=== PATIENT | male | born 1965 | race Caucasian/White ===

== ENCOUNTER 2018-06-10 18:24 | Inpatient (IN) | payer MEDICAID ==
[~2018-06-10] VITALS: Ht 170.2 cm; Wt 97.5 kg
[~2018-06-10 18:24] MED LIST: LOSA-49 PO
[2018-06-10] MEDS ORDERED: SODIUM CHLORIDE 0.9% 1,000 ML IV ONE (19:00)
[2018-06-10 19:34] LABS: Basophils # (auto) 0.1 uL; Basophils % (auto) 1.2 % (0.0-2.0); Eosinophils # (auto) 0.1 uL; Eosinophils % (auto) 0.7 % (0.0-7.0); Hematocrit 48.4 % (41.0-53.0); Hemoglobin 17.1 g/dL (13.5-17.5); Lymphocytes # (auto) 2.7 uL; Lymphocytes % (auto) 25.7 % (10.0-50.0); Mean Corpuscular Hemoglobin 32.4 pg (28.0-32.0); Mean Corpuscular Hgb Conc. 35.4 g/dL (32.0-36.0); Mean Corpuscular Volume 91.5 fL (80.0-100.0); Monocytes # (auto) 0.6 uL; Monocytes % (auto) 6.2 % (0.0-12.0); Neutrophils # (auto) 6.8 uL; Neutrophils % (auto) 66.2 % (37.0-80.0); Nucleated Red Blood Cells % 0.2 %; Platelet Count (auto) 230 10^3/uL (140-450); Red Blood Cells 5.29 10^6/uL (4.5-5.90); Red Cell Distribution Width 13.3 % (11.8-14.3); White Blood Cell 10.3 10^3/uL (4.4-10.8)
[2018-06-10 19:44] LABS: Alanine Aminotransferase 52 U/L (16-61); Albumin 4.1 g/dL (3.4-5.0); Anion Gap 8 (5-15); Aspartate Aminotransferase 30 U/L (15-37); BUN/Creatinine Ratio 11.6; Blood Urea Nitrogen 10 mg/dL (7-18); Calcium 8.2 mg/dL (8.5-10.1); Carbon Dioxide 24 mmol/L (21-32); Chloride 108 mmol/L (98-107); GFR African American 121 mL/min; GFR Non-African American 100 mL/min; Glucose 127 mg/dL (74-106); Potassium 3.3 mmol/L (3.5-5.1); Sodium 140 mmol/L (136-145)
[2018-06-10 19:48] LABS: Alkaline Phosphatase 99 U/L (45-117); Bilirubin, Total 0.6 mg/dL (0.2-1.0); Total Protein 8.1 g/dL (6.4-8.2)
[2018-06-10 20:04] LABS: Urine Bacteria NONE SEEN /hpf (None Seen); Urine Blood Negative /uL (Negative); Urine Specific Gravity 1.004 (1.001-1.035); Urine WBC <1 /hpf (0 - 3)
[2018-06-10] MEDS ORDERED: TEMAZEPAM 15 MG CAP PO PRN (20:45)
[2018-06-10] MEDS ORDERED: ONDANSETRON HCL 4 MG/2 ML VIAL IV PRN (20:45)
[2018-06-10] MEDS ORDERED: DEXTROSE (50%) 50ML SYRG IV PRN (20:45)
[2018-06-10] MEDS: cloNIDine HCL 0.1 MG TAB PO PRN (21:39)
[2018-06-10] MEDS: HYDROcodone-ACET 5/325MG TAB PO PRN (21:39)
[2018-06-10] MEDS ORDERED: POTASSIUM CHL 20 Meq TABLET PO ONE (21:45)
[2018-06-10] MEDS: FAMOTIDINE 20 MG TAB PO SCH (21:52)
[2018-06-10] MEDS ORDERED: ATORVASTATIN 20 MG TAB PO SCH (22:00)
[2018-06-10] MEDS ORDERED: hydrALAZINE HCL 20 MG/ML VL IV ONE (22:45)
[2018-06-10 23:47] VITALS: BP 145/109
[2018-06-11] VITALS (8 sets, daily range): BP systolic 139–170; BP diastolic 84–109
--- NOTE | 2018-06-11 | NUR ---
OPENING NOTE RECEIVED REPORT FROM MY ARREGUIN. ASSUMING ROLE OF CARE OF PATIENT AT THIS TIME. PATIENT SHOWING NO SIGN OF DISTRESS, SHORTNESS OF BREATH, BUT PATIENT STATES PAIN IS 7/10. PATIENT WILL BE MEDICATED PER PAIN PROTOCOL. PATIENT EDUCATED ON PLAN OF CARE FOR THE NIGHT. PATIENT VERBALIZED UNDERSTANDING. BED LOWERED, CALL LIGHT WITHIN REACH, AND PATIENT WILL BE ROUNDED ON EVERY HOUR AND NEEDED. Addendum: 06/11/18 at 0615 by AMITA MCLAIN RN DID NOT RECEIVE REPORT FROM YM ARREGUIN. RECEIVED PATIENT FROM ER.
[2018-06-11] MEDS: ACCU-CHEK COMFORT CURVE STRIP VI SCH ×4 (00:17→18:00)
[2018-06-11] MEDS: ACETAMINOPHEN 325 MG TAB PO PRN (00:22)
--- NOTE | 2018-06-11 01:53 | NUR ---
HOSPITALIST TO BE PAGED PATIENT HAS SLEEP APNEA AND USES CPAP AT HOME. PATIENT UNAWARE OF SETTINGS. REQUESTING CPAP TRIAL. WILL AWAIT ORDERS.
[2018-06-11] MEDS: HYDROcodone-ACET 5/325MG TAB PO PRN (02:33)
--- NOTE | 2018-06-11 03:30 | NUR ---
RT NOTE: PT SEEN BY RT @ THIS TIME FOR CPAP INITIATION. PT PLACED ON HOSPITAL HOME CPAP UNIT ON 5 CMH2O. PT IMMEDIATELY REMOVED MASK AND STATED IT WAS DIFFERENT THAN HIS HOME UNIT AND HE DID NOT WANT TO WEAR IT. CPAP LEFT @ BEDSIDE IN CASE PT CHANGES HIS MIND. NO SOB OR DISTRESS NOTED. SPO2 98% ON ROOM AIR, HR 72, CLEAR BS. RN AWARE OF REFUSAL.
--- NOTE | 2018-06-11 03:31 | NUR ---
RT AT BEDSIDE. PATIENT STATES THAT THE HOSPITAL CPAP DEVICE IS DIFFERENT FROM WHAT PATIENT IS ACCUSTOMED TO AND DOES NOT LIKE IT. CPAP LEFT AT BEDSIDE IN CASE PATIENT CHANGES MIND. WILL CONTINUE TO MONITOR.
[2018-06-11] MEDS: InsuLIN REG 1unit/0.01ml Soln (100units/ml) SC SCH ×4 (05:51→18:00)
[2018-06-11 06:40] LABS: Potassium 3.5 mmol/L (3.5-5.1)
[2018-06-11 06:45] LABS: Albumin 3.5 g/dL (3.4-5.0); BUN/Creatinine Ratio 11.8; Calcium 8.5 mg/dL (8.5-10.1)
[2018-06-11 06:46] LABS: Basophils # (auto) 0 uL; Basophils % (auto) 0.4 % (0.0-2.0); Eosinophils # (auto) 0.2 uL; Eosinophils % (auto) 2.5 % (0.0-7.0); Hematocrit 45.2 % (41.0-53.0); Hemoglobin 15.9 g/dL (13.5-17.5); Lymphocytes # (auto) 3.3 uL; Lymphocytes % (auto) 36.7 % (10.0-50.0); Mean Corpuscular Hemoglobin 32.3 pg (28.0-32.0); Mean Corpuscular Hgb Conc. 35.1 g/dL (32.0-36.0); Monocytes # (auto) 0.8 uL; Neutrophils # (auto) 4.6 uL; Neutrophils % (auto) 51.4 % (37.0-80.0); Nucleated Red Blood Cells % 0.2 %; Platelet Count (auto) 203 10^3/uL (140-450); Red Blood Cells 4.91 10^6/uL (4.5-5.90); Red Cell Distribution Width 13.3 % (11.8-14.3)
[2018-06-11 06:47] LABS: Bilirubin, Total 0.7 mg/dL (0.2-1.0); Total Protein 7.2 g/dL (6.4-8.2)
[2018-06-11] MEDS: FAMOTIDINE 20 MG TAB PO SCH ×2 (08:46→20:33)
[2018-06-11] MEDS: LOSARTAN POTASSIUM 50 MG TAB PO SCH (08:46)
[2018-06-11] MEDS ORDERED: ASPirin 81 mg TAB PO SCH (10:00)
[2018-06-11] MEDS: ASPirin 81 mg TAB PO SCH (10:00)
--- NOTE | 2018-06-11 10:40 | NUR ---
Respiratory note: PT IS OFF CPAP. NO SKIN BREAKDOWN NOTED. SO SOB OR DISTRESS NOTED.
[2018-06-11] MEDS: MULTIPLE VITAMIN 10 ML, MAGNESIUM SULF SDV 50% 8 MEQ in SODIUM CHLORIDE 0.9% 1,000 ML IV SCH (11:53)
[2018-06-11] MEDS: cloNIDine HCL 0.1 MG TAB PO PRN (13:58)
[2018-06-11 17:36] LABS: Cholesterol 257 mg/dL (< 200); Triglycerides 534 mg/dL (< 150)
[2018-06-11 17:38] LABS: HDL Cholesterol 28 mg/dL (40-59)
--- NOTE | 2018-06-11 20:00 | NUR ---
Opening Shift Note Assumed care of patient, awake and alert. No S/S of distress/SOB or pain. Instructed on POC and to call for assist PRN, will continue to monitor for changes Q1hr and PRN. Refused CPAP for tonight.
[2018-06-11] MEDS ORDERED: ATORVASTATIN 20 MG TAB PO SCH (22:00)
--- NOTE | 2018-06-11 22:33 | NUR ---
Respiratory note: At bedside to assess pt for cpap. Pt refusing to wear cpap tonight. pt states he is not going to wear it since it feels very uncomfortable and is not the same as what he wears at home. Pt was explained he is welcome to bring his home cpap- mask only if that is what is making him uncomfortable. Pt explained benefits of cpap, pt still refusing to wear. Cpap unit removed from pts room due to refusal.
[2018-06-12] MEDS: InsuLIN REG 1unit/0.01ml Soln (100units/ml) SC SCH ×4 (00:25→17:19)
[2018-06-12] MEDS: ACCU-CHEK COMFORT CURVE STRIP VI SCH ×4 (00:25→17:19)
[2018-06-12 05:00] VITALS: BP 138/83
--- NOTE | 2018-06-12 08:00 | NUR ---
Opening Shift Note Assumed care of patient, awake and alert sitting up at bedside. No S/S of distress/SOB or pain. Instructed on POC and to call for assist PRN, will continue to monitor for changes Q1hr and PRN.
[2018-06-12 09:00] VITALS: BP 146/94
[2018-06-12] MEDS: FAMOTIDINE 20 MG TAB PO SCH (09:42)
[2018-06-12] MEDS: ASPirin 81 mg TAB PO SCH (09:42)
[2018-06-12] MEDS: LOSARTAN POTASSIUM 50 MG TAB PO SCH (09:43)
--- NOTE | 2018-06-12 10:15 | NUR ---
elevator service technician at bedside.
--- NOTE | 2018-06-12 11:20 | NUR ---
EEG COMPLETED AT BEDSIDE. RODRÍGUEZ HERRON.
[2018-06-12 13:00] VITALS: BP 134/89
[2018-06-12] MEDS: MULTIPLE VITAMIN 10 ML, MAGNESIUM SULF SDV 50% 8 MEQ in SODIUM CHLORIDE 0.9% 1,000 ML IV SCH (13:30)
[2018-06-12 17:00] VITALS: BP 147/95
[2018-06-12] MEDS: ACETAMINOPHEN 325 MG TAB PO PRN (17:18)
[2018-06-12 18:00] VITALS: BP 147/95
--- NOTE | 2018-06-12 18:56 | NUR ---
Discharge instructions given as ordered. Encourage to follow up with PMD as instructed. All questions and concerns addressed. Patient verbalized understanding. Medication reconciliation form completed and copy given to patient. IV removed with catheter intact and pressure dressing applied. Patient in room awaiting transportation.
--- NOTE | 2018-06-12 19:00 | NUR ---
Patient ambulated from unit with all personal belongings. All questions and concerns addressed.
== END 2018-06-12 19:00 | disposition home health service (06) | DRG 47 ==
LOC: ER 18:29 → OVERFLOW 20:44 → WEST WING 23:20
PROVIDERS: ADMIT Nurse Practitioner; ATTEND Internal Medicine Pulmonary Disease
DX: G45.9 Transient cerebral ischemic attack, unspecified (principal); I69.354 Hemiplegia and hemiparesis following cerebral infarction affecting left non-dominant side; E11.9 Type 2 diabetes mellitus without complications; E87.6 Hypokalemia; F10.129 Alcohol abuse with intoxication, unspecified; I10 Essential (primary) hypertension; E78.5 Hyperlipidemia, unspecified; F12.90 Cannabis use, unspecified, uncomplicated; F17.210 Nicotine dependence, cigarettes, uncomplicated; G40.909 Epilepsy, unspecified, not intractable, without status epilepticus; K21.9 Gastro-esophageal reflux disease without esophagitis; G47.30 Sleep apnea, unspecified; Z91.018 Allergy to other foods; Z79.899 Other long term (current) drug therapy; Z79.82 Long term (current) use of aspirin; Z82.0 Family history of epilepsy and other diseases of the nervous system; Z82.49 Family history of ischemic heart disease and other diseases of the circulatory system; Z83.3 Family history of diabetes mellitus
CPT/HCPCS: 36415; 70450; 70545; 70551; 71046; 80053; 80061; 80320; 81001; 82962; 84484; 85025; 93005; 93306; 93886; 94660; 94761; 95819; 96361; 96374; 96375; G0378; J1815; J2405